=== PATIENT | male | born 1965 | race Caucasian/White ===

== ENCOUNTER 2019-10-27 10:57 | Outpatient (CLI) | payer BC, SELFPAY ==
--- NOTE | 2019-10-27 11:03 | US_ITS ---
WS: [id number] ULTRASOUND ABDOMEN CLINICAL INFORMATION: abdominal pain COMPARISON: None. FINDINGS: Liver Size: Enlarged Craniocaudal length: 19.7 cm. Echogenicity: Coarse echogenicity likely due to fatty infiltration Surface nodularity: None. Mass (size and location): None. Bile ducts Intrahepatic ducts: Normal. Common bile duct diameter: 0.4 cm. Gallbladder Normal. Gallstones: None. Gallbladder sludge: None. Gallbladder wall thickening: None. Pericholecystic fluid: None. Sonographic Nicholson sign: Absent. Pancreas Not well visualized Spleen Splenomegaly: None. Craniocaudal length: 11 cm. Right kidney: Normal. Hydronephrosis: None. Size: 10.6 cm x 5.3 cm x 6.3 cm Left kidney: Normal. Hydronephrosis: None. Size: 11.6 cm x 4.6 cm x 7.1 cm. Abdominal aorta not well visualized Ascites: None. US/US abdomen complete* [id number] IMPRESSION: 1. Hepatomegaly with diffuse fatty infiltration. 2. Normal gallbladder. 3. No intrahepatic biliary dilatation. 4. No hydronephrosis in either kidney.
== END 2019-10-27 10:58 | disposition home or self-care (01) ==
LOC: RADWPI 11:00
PROVIDERS: Family Provider Electrodiagnostic Medicine; PCP Electrodiagnostic Medicine; Visit Provider Internal Medicine Cardiovascular Disease
DX: R10.9 Unspecified abdominal pain (principal); K76.0 Fatty (change of) liver, not elsewhere classified
CPT/HCPCS: 76700; 80053; 80061; 83036; 84443; 85025; 85651; 86140

== ENCOUNTER → 2019-10-28 09:07 | Outpatient (BNVA) | payer BC, SELFPAY | PROVIDERS: Family Provider Electrodiagnostic Medicine; PCP Electrodiagnostic Medicine; Visit Provider Internal Medicine Cardiovascular Disease | DX: I10 Essential (primary) hypertension (principal); I25.10 Atherosclerotic heart disease of native coronary artery without angina pectoris; I31.3 Pericardial effusion (noninflammatory); R10.9 Unspecified abdominal pain; I51.9 Heart disease, unspecified; E78.5 Hyperlipidemia, unspecified; R10.10 Upper abdominal pain, unspecified; Z98.890 Other specified postprocedural states; G47.33 Obstructive sleep apnea (adult) (pediatric) | CPT/HCPCS: 83880 ==

== ENCOUNTER 2019-11-10 08:03 | Outpatient (CLI) | payer BC, SELFPAY ==
--- NOTE | 2019-11-10 08:00 | USCV_ITS ---
Gray Moctezuma Age: 54 Gender: M : 1965 Exam Date: 11/10/2019 08:21 Ordering Phys: Roseann Gomez MD ([email or web address]) Technologist: Nigel Alfaro Exam Location: [facility] – [place] Indication: Pericardial effusion BP: 130 / 70 HR: 69 Rhythm: Sinus Technical Quality: Fair MEASUREMENTS (Male / Female) Normal Values 2D ECHO LV Diastolic Diameter PLAX 4.8 cm 4.2 - 5.9 / 3.9 - 5.3 cm LV Systolic Diameter PLAX 2.6 cm IVS Diastolic Thickness 0.9 cm 0.6 - 1.0 / 0.6 - 0.9 cm IVS Systolic Thickness 1.8 cm LVPW Diastolic Thickness 1.4 cm 0.6 - 1.0 / 0.6 - 0.9 cm LVPW Systolic Thickness 1.6 cm LVOT Diameter 2.2 cm LV Ejection Fraction 2D Teich 76.7 % LV Ejection Fraction MOD 2C 66.1 % LV Ejection Fraction 2C AL 66.0 % LA Diameter 5.0 cm LA Width 4.4 cm LA Height 5.0 cm RA Width 3.8 cm RA Height 4.9 cm Aorta at Sinotubular Diameter 3.0 cm M-MODE LV Diastolic Diameter MM 5.2 cm 4.2 - 5.9 / 3.9 - 5.3 cm LV Systolic Diameter MM 3.4 cm LV Ejection Fraction MM Teich 64.0 % IVS Diastolic Thickness MM 1.9 cm 0.6 - 1.0 / 0.6 - 0.9 cm IVS Systolic Thickness MM 1.9 cm LVPW Diastolic Thickness MM 1.8 cm 0.6 - 1.0 / 0.6 - 0.9 cm LVPW Systolic Thickness MM 2.5 cm RV Diastolic Diameter MM 1.9 cm Aortic Annulus Diameter 4.0 cm LA Ao Ratio MM 1.3 MV E Point Septal Separation 0.9 cm FINDINGS Left Ventricle Normal left ventricular cavity size. Increased left ventricular wall thickness. Normal left ventricular systolic function. Left ventricular ejection fraction is estimated at 60 %. No diagnostic regional wall motion abnormalities. Right Ventricle Normal right ventricular size and systolic function. Right Atrium Normal right atrial size. Left Atrium Left atrium not well visualized. Normal left atrial size. Mitral Valve Mildly thickened mitral valve. Trace mitral valve regurgitation. Aortic Valve Aortic valve not well visualized. Tricuspid Valve Tricuspid valve not well visualized. Pulmonic Valve Pulmonic valve not well visualized. Pericardium No pericardial effusion. Aorta Normal sized aortic root. CONCLUSIONS 1. This is a limited study. 2. Normal left ventricular cavity size. Increased left ventricular wall thickness. Normal left ventricular systolic function. Left ventricular ejection fraction is estimated at 60 %. No diagnostic regional wall motion abnormalities. 3. No pericardial effusion. 4. When compared to previous echocardiogram dated 05/24/2019, there in no pericardial effusion now. Roseann Gomez MD (Electronically Signed) Final Date: 10 November 2019 10:42 S
== END 2019-11-10 08:04 | disposition home or self-care (01) ==
LOC: RAD 08:08
PROVIDERS: Family Provider Electrodiagnostic Medicine; PCP Electrodiagnostic Medicine; Visit Provider Internal Medicine Cardiovascular Disease
DX: I31.3 Pericardial effusion (noninflammatory) (principal)
CPT/HCPCS: 93308

== ENCOUNTER 2022-04-17 13:30 | Emergency (ER) | payer OTHER, SELFPAY ==
[2022-04-17] VITALS (7 sets, daily range): BP systolic 170–220; BP diastolic 100–115; PULSE 65–78; RESP 16–18; TEMP 36.6; O2SAT 95–98; BMI 34.0
--- NOTE | 2022-04-17 14:05 | ECG_ITS ---
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 Measurements Intervals [place] Rate: 75 P: 38 DE: 188 QRS: -17 QRSD: 92 T: 29 QT: 379 QTc: 425 Interpretive Statements SINUS RHYTHM POSSIBLE LEFT ATRIAL ENLARGEMENT [-0.1mV P-WAVE IN V1/V2] Compared to ECG 05/24/2019 13:41:29 No significant changes Electronically Signed On 04-17-2022 20:44:06 CDT by Niurka Walker M.D. [id number]
--- NOTE | 2022-04-17 15:22 | W.ED.DIZZY ---
HPI - Dizziness General: Chief Complaint: Dizziness Stated Complaint: High B/P, Back pain Time Seen by Provider: 04/17/22 14:10 Source: patient and family Mode of arrival: ambulatory Limitations: no limitations History of Present Illness: HPI Narrative: This patient presented to the emergency department because he is concerned about blood pressure being out of control. He has a history of hypertension and he states he has been faithful to all his medications. He states over the past several days he has had episodes of transient dizziness and is noted his blood pressure has been elevated. He states he is does not have any associated chest pain, illness etc. He does have some mild nausea. He states when he says he is lightheaded he feels like he is a little floaty headed feeling but no vertigo. No focal weakness. No difficulty with speech. No headache. He does smoke cigarettes and does drink alcohol on a daily basis. He quantifies approximately of 5-6 mixed drinks daily. He denies any exertional chest pain. He apparently has a history of having a pericardial effusion some years ago and had a pericardiocentesis with a window. He states he has had no change in his blood pressure medications recently. He denies use of nonsteroidals. MD elicited complaint: lightheadedness Description: lightheadedness Associated symptoms: Denies change in hearing, chest pain, chills, headache(s), nausea, nasal congestion, palpitations or vomiting Associated neuro symptoms: Deny confusion or numbness in extremities Review of Systems Const: Denies: fever(s), chills or body aches Eyes: Denies: change in vision ENMT: Denies: throat pain, odynophagia, change in hearing, nasal discharge or nasal congestion Card: Denies: chest pain, palpitations, irregular heart rhythm or edema Resp: Denies: dyspnea, productive cough or non-productive cough GI: Denies: abdominal pain, nausea, vomiting or hematemesis : Denies: flank pain, difficulty urinating, dysuria or urinary frequency Musc: Denies: neck pain, back pain, extremity pain or extremity swelling Skin/Breast: Denies: rash Neuro: Denies: headache(s), numbness in extremities, weakness in extremities, lack of coordination, vertigo, confusion or Slurred speech present Psych: Denies: anxiety or depression Endo: Denies: polyuria or polydipsia Zak/Lymph: Denies: easy bruising PFSH ED PFSH: Medical History Arteriosclerotic heart disease (ASHD) Dyslipidemia Hypertension Left ventricular diastolic dysfunction, NYHA class 1 Sleep apnea Status post left heart catheterization ?Markedly elevated LVEDP of 40 mmHg and ?mild coronary disease involving the left anterior descending artery and the right coronary artery. Surgical History (Updated 10/28/19 @ 11:34 by Roseann Gomez MD) S/P pericardiocentesis Family History Other CAD (coronary artery disease) Hypertension Social History Smoking and tobacco status: never smoked Alcohol intake: current Alcohol intake frequency: 0-2 Drinks per Day Physical Exam Narrative: EXAM NARRATIVE: Patient is alert and cooperative and appears to be in no acute distress. Const: COMMON NORMALS: no acute distress and patient oriented x3 GENERAL APPEARANCE: cooperative and comfortable NUTRITIONAL APPEARANCE: overweight HENMT: COMMON NORMALS: normocephalic, moist oral mucous membranes and oropharynx normal HEAD & SCALP: normocephalic Eye: COMMON NORMALS: Equal, round and reactive pupils present, EOMs intact bilaterally and conjunctivae normal CONJUNCTIVA: Yes conjunctivae normal PUPIL: Yes Equal, round and reactive pupils present Neck/C-Spine: COMMON NORMALS: full ROM, no JVD, Thyroid normal and No carotid bruits THYROID: Thyroid normal Chest: COMMONS NORMALS: normal inspection of the chest Resp: COMMON NORMALS: normal respiratory effort, No retractions and clear to auscultation bilaterally AUSCULTATION: clear to auscultation bilaterally Cardio: COMMON NORMALS: no JVD, regular rate, regular rhythm, No murmurs present (Cardio) and Peripheral pulses 2+ throughout RATE: regular rate RHYTHM: regular rhythm PERIPHERAL PULSES: Peripheral pulses 2+ throughout GI: COMMON NORMALS: Normal to inspection, nondistended, normoactive bowel sounds present, Soft to palpation, non-tender, no masses and no bruits PALPATION: Yes Soft to palpation : COMMON NORMALS: Yes no CVA tenderness BLADDER/KIDNEY EXAM: Yes no CVA tenderness Back/Pelvis: COMMON NORMALS: no CVA tenderness, thoracic and lumbar spine normal to inspection, no thoracic nor lumbar tenderness and straight leg raise negative bilaterally Extremity: COMMON NORMALS: normal to inspection, full ROM, capillary refill normal, no clubbing, cyanosis or edema, no calf tenderness and no pedal edema Neuro: COMMON NORMALS: patient oriented x3, moves all extremities, no focal motor deficits, no sensory deficits noted and gait normal CRANIAL NERVES: Yes CN normal except as noted Psych: COMMON NORMALS: mental status grossly normal Skin: COMMON NORMALS: no rashes or lesions noted, no wounds and turgor normal GENERAL SKIN EXAM: no rashes or lesions noted and turgor normal Course Reevaluation(s): Reevaluation #1: Bedside ultrasound was used to perform a limited cardiac evaluation. No evidence of pericardial effusion noted using the phased array probe. Global myocardial and function essentially normal. Time: 16:18 Reevaluation #2: After a single dose of labetalol the patient's pressures in more acceptable range in the 170s over 100. He states he feels subjectively much better. No other new or focal findings at this time. We will try to make some basic changes in his medications to control his blood pressure and have him continue to monitor that at home. I did discuss reducing his alcohol intake that is is likely a contributing factor to his hypertension as well. 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 His work-up here is unremarkable for any other concerning findings other than elevated blood pressure which was reduced somewhat with a dose of labetalol. We will go ahead and have increase his lisinopril to twice daily dosing given his uncontrolled hypertension and his cardiomegaly. Increasing his beta-jered is not likely to be helpful given he is already bradycardic and he has cardiomegaly. Also advised on alcohol intake and the decreasing that to a minimal amount. He voiced understanding of our recommendations and is satisfied with his evaluation and stable for discharge at this time. Medical Records I reviewed the patient's medical records. Lab Data I reviewed the patient's lab results. : 04/17/22 14:30 04/17/22 14:30 Radiology Impressions Chest X-Ray 04/17/22 15:24 IMPRESSION: 1. Cardiomegaly. 2. Bibasilar atelectasis. Laboratory Results WBC 11.5 10^3/uL (4.0-10.0) H 04/17/22 14:30 RBC 5.02 10^6/uL (4.1-5.3) 04/17/22 14:30 Hgb 15.7 g/dL (11.7-16.6) 04/17/22 14:30 Hct 47.8 % (42.0-52.0) 04/17/22 14:30 MCV 95.2 fl (80-94) H 04/17/22 14:30 MCH 31.3 pg (28.0-34.0) 04/17/22 14:30 MCHC 32.8 g/dL (30.0-36.0) 04/17/22 14:30 RDW 12.7 % (12.1-15.1) 04/17/22 14:30 Plt Count 301 10^3/cmm (130-400) 04/17/22 14:30 MPV 10.5 fL (7.4-10.4) H 04/17/22 14:30 Neut % (Auto) 69.2 % 04/17/22 14:30 Lymph % (Auto) 17.8 % 04/17/22 14:30 [place] % (Auto) 10.8 % 04/17/22 14:30 Eos % (Auto) 0.9 % 04/17/22 14:30 Baso % (Auto) 0.7 % 04/17/22 14:30 Neut # (Auto) 7.99 10^3/uL (1.8-7.7) H 04/17/22 14:30 Lymph # (Auto) 2.1 10^3/uL (0.8-4.8) 04/17/22 14:30 [place] # (Auto) 1.2 10^3/uL (0.2-0.9) H 04/17/22 14:30 Eos # (Auto) 0.1 10^3/uL (0.0-0.8) 04/17/22 14:30 Baso # (Auto) 0.1 10^3/uL (0.0-0.1) 04/17/22 14:30 Nucleated RBC % (auto) 0 % 04/17/22 14:30 Nucleated RBCs # 0.0 /100WBC 04/17/22 14:30 Sodium 140 mmol/L (136-145) 04/17/22 14:30 Potassium 4.6 mmol/L (3.5-5.1) 04/17/22 14:30 Chloride 103 mmol/L (98-107) 04/17/22 14:30 Carbon Dioxide 27 mmol/L (22-29) 04/17/22 14:30 Anion Gap 14.6 (5-19) 04/17/22 14:30 BUN 16 mg/dL (6-20) 04/17/22 14:30 Creatinine 1.1 mg/dL (0.7-1.2) 04/17/22 14:30 GFR Calculation 68.8 mL/min (90-130) L 04/17/22 14:30 Glucose 93 mg/dL (65-115) 04/17/22 14:30 Calculated Osmolality 291 mOsm/kg (285-295) 04/17/22 14:30 Calcium 9.4 mg/dL (8.5-10.5) 04/17/22 14:30 Total Bilirubin 1.0 mg/dL (0.15-1.2) 04/17/22 14:30 AST 18 U/L (0-40) 04/17/22 14:30 ALT 14 U/L (0-41) 04/17/22 14:30 Alkaline Phosphatase 89 U/L (40-130) 04/17/22 14:30 Troponin T Gen 5 ng/L 11 ng/L (0-15) 04/17/22 14:30 NT-Pro-B Natriuret Pep 261 pg/mL (0-125) H 04/17/22 14:30 Total Protein 7.2 g/dL (6.6-8.7) 04/17/22 14:30 Albumin 4.4 g/dL (3.5-5.2) 04/17/22 14:30 Globulin 2.8 g/dL (1.3-4.6) 04/17/22 14:30 EKG Data EKG 1: I personally reviewed and interpreted this EKG as follows: Interpretation: EKG reveals normal sinus rhythm of 67 bpm. AR QRS and QTc interval and duration. Normal axis. No acute ST-T wave changes. Discharge Plan Discharge Patient Disposition: Home Clinical Impression: Hypertension Condition: Stable Prescriptions: No Action aspirin [Adult Low Dose Aspirin] 81 mg tablet,delayed release (DR/EC) 81 mg PO QAM isosorbide mononitrate 30 mg tablet extended release 24 hr 30 mg PO QAM Qty: 30 5RF metoprolol tartrate 25 mg tablet 25 mg PO BID Qty: 60 5RF Nitrostat 0.4 mg Tablet, Sublingual 0.4 mg SUBLINGUAL Q5M PRN (Reason: Chest Pain) Rx Instructions: do not exceed 3 doses per episode lisinopril 20 mg tablet 20 mg PO BEDTIME chlorthalidone 25 mg tablet 25 mg PO DAILY PRN (Reason: Edema) simvastatin 80 mg tablet 80 mg PO BEDTIME Discharge Orders: Discharge ED (Routine); Ordered 04/17/22 Ordered By: Tyree Guzman Discharge Diet: Low Salt Discharge Activity: Resume usual activity Patient Instructions: Opioid Safety, Pain Management Activity Restrictions/Additional Instructions: Increase your lisinopril to 20 mg in the morning and 20 mg at night. Monitor your blood pressure 1-2 times a day and record those numbers for your doctor. Reduce your alcohol intake as much as possible. If you develop chest pain shortness of breath or other concerning symptoms return to this emergency department otherwise see your doctor in 2 weeks for reevaluation of your blood pressure and medication adjustments Coding Level of Care Code ED Teacher Of The Handicapped for Yoon Fwnereyda Exam Comprehensive
--- NOTE | 2022-04-17 15:24 | XRR_ITS ---
PROCEDURE INFORMATION: Exam: XR Chest Exam date and time: 04/17/2022 3:30 PM Age: 56 years old Clinical indication: Pain; Angina pectoris; Patient HX: High blood pressure; Additional info: Cp TECHNIQUE: Imaging protocol: Radiologic exam of the chest. Views: 1 view. COMPARISON: CR XR chest 1V [id number] 05/24/2019 10:16 AM FINDINGS: Lungs: Bibasilar atelectasis. Pleural spaces: Unremarkable. No pleural effusion. No pneumothorax. Heart/Mediastinum: Cardiomegaly. Bones/joints: Unremarkable. XR/XR chest 1V portable [id number] IMPRESSION: 1. Cardiomegaly. 2. Bibasilar atelectasis.
--- NOTE | 2022-04-17 15:24 | ECG_ITS ---
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 Measurements Intervals [place] Rate: 67 P: 38 NV: 180 QRS: -14 QRSD: 97 T: 13 QT: 402 QTc: 426 Interpretive Statements SINUS RHYTHM Compared to ECG 04/17/2022 14:05:23 No significant changes Electronically Signed On 04-17-2022 20:45:28 CDT by Niurka Walker M.D. [id number]
[2022-04-17 15:32] LABS: Basophils # 0.1 10^3/uL (0.0-0.1); Basophils % 0.7 %; Eosinophils # 0.1 10^3/uL (0.0-0.8); Eosinophils % 0.9 %; Hematocrit 47.8 % (42.0-52.0); Hemoglobin 15.7 g/dL (11.7-16.6); Lymphocytes # 2.1 10^3/uL (0.8-4.8); Lymphocytes % 17.8 %; Mean Corpuscular HGB Conc 32.8 g/dL (30.0-36.0); Mean Corpuscular Hemoglobin 31.3 pg (28.0-34.0); Mean Corpuscular Volume 95.2 fl (80-94); Mean Platelet Volume 10.5 fL (7.4-10.4); Monocytes # 1.2 10^3/uL (0.2-0.9); Monocytes % 10.8 %; Neutrophils # 7.99 10^3/uL (1.8-7.7); Neutrophils % 69.2 %; Nucleated Red Blood Cells % 0 %; Platelet Count 301 10^3/cmm (130-400); Red Blood Count 5.02 10^6/uL (4.1-5.3); Red Cell Distribution Width 12.7 % (12.1-15.1); White Blood Count 11.5 10^3/uL (4.0-10.0)
[2022-04-17 15:52] LABS: Alanine Aminotransferase 14 U/L (0-41); Albumin Level 4.4 g/dL (3.5-5.2); Alkaline Phosphatase 89 U/L (40-130); Blood Urea Nitrogen 16 mg/dL (6-20); Calcium 9.4 mg/dL (8.5-10.5); Carbon Dioxide 27 mmol/L (22-29); Chloride 103 mmol/L (98-107); Globulin 2.8 g/dL (1.3-4.6); Glomerular Filtration Rate 68.8 mL/min (90-130); Glucose 93 mg/dL (65-115); NT Pro B Type Natriuretic Pept 261 pg/mL (0-125); Osmolality Calculated 291 mOsm/kg (285-295); Sodium 140 mmol/L (136-145); Total Protein 7.2 g/dL (6.6-8.7)
[2022-04-17 15:56] LABS: Anion Gap 14.6 (5-19); Aspartate Amino Transferase 18 U/L (0-40); Potassium 4.6 mmol/L (3.5-5.1)
[2022-04-17 16:15] LABS: Troponin T (5th) Once 11 ng/L (0-15)
[2022-04-17] MEDS: labetalol 5 mg/mL SDV 20mL 10 MG IVP (17:03)
== END 2022-04-17 19:09 | disposition home or self-care (01) ==
PROVIDERS: Emergency Provider Emergency Medicine
DX: I10 Essential (primary) hypertension (principal); Z79.82 Long term (current) use of aspirin; E78.5 Hyperlipidemia, unspecified
CPT/HCPCS: 71045; 80053; 83880; 84484; 85025; 93005; 96374; 99285; J3490

== ENCOUNTER → 2022-06-18 14:06 | Outpatient (BNVA) | payer OTHER, SELFPAY | PROVIDERS: PCP Family Medicine; Visit Provider Family Medicine | DX: R05.9 Cough, unspecified (principal); J10.1 Influenza due to other identified influenza virus with other respiratory manifestations | CPT/HCPCS: 87400; 87426 ==

== ENCOUNTER → 2023-09-23 11:14 | Outpatient (BNVA) | payer OTHER, SELFPAY | PROVIDERS: PCP Family Medicine; Visit Provider Family Medicine | DX: E03.9 Hypothyroidism, unspecified (principal); I10 Essential (primary) hypertension; I25.10 Atherosclerotic heart disease of native coronary artery without angina pectoris; E78.5 Hyperlipidemia, unspecified; R63.5 Abnormal weight gain; R35.0 Frequency of micturition; M79.10 Myalgia, unspecified site; R06.00 Dyspnea, unspecified; G47.33 Obstructive sleep apnea (adult) (pediatric); R53.83 Other fatigue; E55.9 Vitamin D deficiency, unspecified; Z13.6 Encounter for screening for cardiovascular disorders; L98.9 Disorder of the skin and subcutaneous tissue, unspecified | CPT/HCPCS: 80053; 80061; 82607; 82652; 83036; 83090; 84443; 85025 ==

== ENCOUNTER 2023-10-21 14:00 | Outpatient (CLI) | payer OTHER, SELFPAY | END 2023-10-21 14:01 | disposition home or self-care (01) | LOC: SLEEP 10-23 11:45 | PROVIDERS: PCP Family Medicine; Visit Provider Family Medicine | DX: G47.33 Obstructive sleep apnea (adult) (pediatric) (principal) | CPT/HCPCS: G0399 ==

== ENCOUNTER 2023-11-18 07:55 | Outpatient (CLI) | payer OTHER, SELFPAY ==
--- NOTE | 2023-11-18 08:15 | US_ITS ---
WS: [id number] TESTICULAR ULTRASOUND HISTORY: RIGHT scrotal mass. FDC. COMPARISON: None available. TECHNIQUE: Real-time and color Doppler imaging or utilized to perform a testicular ultrasound. Right testicle: 4.3 cm x 3.0 cm x 2.8 cm. Normal sized testicle. There is mild coarsening and heterogeneity throughout the testicle. No mass. N ormal Doppler. Normal color Doppler is present throughout. Systolic and diastolic velocities are both present. No significant hydrocele. Right epididymis: There is a large tubular cystic structure along the lateral posterior aspect of the testicle corresponding to the epididymis. There are a few low-level echoes. This is probably spermat oceles. No increased vascularity. Left testicle: 4.2 cm x 3.2 cm x 2.1 cm. Normal size with mild heterogeneity. Similar to the prior study. Normal color Doppler is present throughout. Systolic and diastolic velocities are both present. No significant hydrocele. Left epididymis: Normal epididymis with no increased vascularity. IMPRESSION: 1. No testicular mass or torsion. 2. Large tubular cystic structure with low-level echoes corresponding to the palpable mass along the RIGHT testicle. 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 No solid component.
== END 2023-11-18 07:56 | disposition home or self-care (01) ==
LOC: RAD 07:55
PROVIDERS: PCP Family Medicine; Visit Provider Family Medicine
DX: N50.89 Other specified disorders of the male genital organs (principal); G47.33 Obstructive sleep apnea (adult) (pediatric)
CPT/HCPCS: 76870

== ENCOUNTER 2023-11-21 20:00 | Outpatient (CLI) | payer OTHER, SELFPAY | END 2023-11-21 20:01 | disposition home or self-care (01) | LOC: SLEEP 11-22 06:14 | PROVIDERS: PCP Family Medicine; Visit Provider Family Medicine | DX: G47.33 Obstructive sleep apnea (adult) (pediatric) (principal) | CPT/HCPCS: 95811 ==